=== PATIENT | male | born 1985 | race Caucasian/White ===

== ENCOUNTER 2023-07-31 23:18 | Emergency (ER) | payer OTHER ==
[2023-07-31 23:25] VITALS: BP 143/82; PULSE 69; RESP 18; TEMP 97.7; BMI 29.1
[2023-08-01] MEDS ORDERED: FLUORESCEIN NA 1 EA STRIP ONE (01:28)
[2023-08-01] MEDS ORDERED: ERYTHROMYCIN 0.5% OPHTHALMIC OINTMENT 3.5 GM TUBE ONE (01:28)
[2023-08-01] MEDS: FLUORESCEIN NA 1 EA STRIP OU ONE (01:30)
[2023-08-01] MEDS: ERYTHROMYCIN 0.5% OPHTHALMIC OINTMENT 3.5 GM TUBE OU STA (01:31)
== END 2023-08-01 01:50 | disposition home or self-care (01) ==
LOC: JER 23:18 → JERFT 23:18
DX: S05.01XA Injury of conjunctiva and corneal abrasion without foreign body, right eye, initial encounter (principal); X58.XXXA Exposure to other specified factors, initial encounter; Y99.0 Civilian activity done for income or pay
CPT/HCPCS: 99283-25